=== PATIENT | male | born 1935 | race Caucasian/White ===

== ENCOUNTER → 2018-01-21 | Day surgery (SDC) | payer OTHER ==
[~2018-01-21] VITALS: Ht 182.9 cm; Wt 99.8 kg
[~2018-01-21] MED LIST: ALPHAGAN 0100 DROP/5 RIGHT EYE; ARTIFICIAL TEAR1510 BOTH EYES; COZAAR50 MG PO; DORZOLAMIDE-TIM10 ML RIGHT EYE; FLOMAX0.4 MG PO; LIPITOR40 MG PO; LO-DOSE ASPIRIN81 M2 PO; LOPRESSOR50 MG PO; NEURONTIN100 MG PO; NITROSTAT0.4 MG SL; NORVASC10 MG PO; PROSCAR5 MG PO; SYNTHROID150 MCG PO; VITAMIN D31000 UNIT PO; VOLTAREN 1% GE100 GM TP; XALATAN2.5 ML BOTH EYES; ZYLOPRIM100 MG PO
[2018-01-21 13:00] VITALS: BP 136/73
[2018-01-21 16:00] VITALS: BP 148/72
[2018-01-21 16:35] VITALS: BP 120/70
== END | disposition home or self-care (01) ==
LOC: SDC 09:58
PROC: 08B43ZZ Excision of Right Vitreous, Percutaneous Approach (ICD-10-PCS; principal; 2018-01-21)
DX: H43.01 Vitreous prolapse, right eye (principal); H27.01 Aphakia, right eye; H44.731 Retained (nonmagnetic) (old) foreign body in lens, right eye; I12.9 Hypertensive chronic kidney disease with stage 1 through stage 4 chronic kidney disease, or unspecified chronic kidney disease; N18.3 Chronic kidney disease, stage 3 (moderate); E03.9 Hypothyroidism, unspecified; Z95.0 Presence of cardiac pacemaker; Z79.82 Long term (current) use of aspirin
CPT/HCPCS: J0690; J3010; V2632